=== PATIENT | male | born 1995 | race Two or more races ===

== ENCOUNTER 2018-01-22 01:50 | Emergency (ER) | payer OTHER ==
[2018-01-22] MEDS ORDERED: NS 1,000 ML IV ONE (01:55)
[2018-01-22] MEDS ORDERED: IOPAMIDOL (ISOVUE 370) 100 ML BTL IV ONE (01:58)
--- NOTE | 2018-01-22 01:59 | EDPHY ---
H & P Time Seen by Provider: 01/22/18 01:56 HPI/ROS: HPI CHIEF COMPLAINT: Alcohol intoxication, fall 15 ft, Limited trauma activation HISTORY OF PRESENT ILLNESS: 22-year-old male, LTA, presents to the emergency room after he fell off a deck 15 ft. Landed on the ground. Unknown LO C. Presents emergency room GCS of 14. He is intoxicated with alcohol. Only evidence of trauma on exam is that he has an abrasion to his left scapula, abrasion left forearm. He otherwise intoxicated with alcohol however moves everything appropriately. Patient arrives hemodynamically stable. GCS of 14 due to alcohol toxication some perseverating on exam. Past Medical History: Unknown medical history Past Surgical History: Unknown surgical history Social History: Large amount of alcohol this evening. Family History: Unknown ROS REVIEW OF SYSTEMS: Limited due to patient's alcohol intoxication Exam Constitutional intoxicated with alcohol, triage nursing summary reviewed, vital signs reviewed, awake/alert. Eyes normal conjunctivae and sclera, EOMI, PERRLA. HENT head/neck: Rigid cervical collar. Otherwise head neck atraumatic normal inspection, atraumatic, moist mucus membranes, no epistaxis, neck supple/ no meningismus, no raccoon eyes. Respiratory clear to auscultation bilaterally, normal breath sounds, no respiratory distress, no wheezing. Cardiovascular rate normal, regular rhythm, no murmur, no edema, distal pulses normal. Gastrointestinal soft, non-tender, no rebound, no guarding, normal bowel sounds, no distension, no pulsatile mass. Genitourinary no CVA tenderness. Musculoskeletal no midline vertebral tenderness, full range of motion, no calf swelling, no tenderness of extremities, no meningismus, good pulses, neurovascularly intact. Skin abrasion left posterior scapula, abrasion left forearm. Neurologic intoxicated, smells of alcohol, slurring speech GCS of 14 awake, alert and oriented x 2, AAOx2, moves all 4 extremities equally, motor intact, sensory intact, CN II-XII intact, normal cerebellar, normal vision Psychiatric normal mood/affect. Heme/Lymph/Immune no lymphadenopathy. Differential Diagnosis: Includes but is not limited to in a particular order acute alcohol intoxication, alcohol abuse, fall with multiple injuries, pneumothorax, hemothorax, closed head injury, intracranial bleed Medical Decision Making: Plan for this patient fell 15 ft perseverating with a GCS [address] scan head without contrast CT cervical spine without contrast, chest x-ray, CT chest abdomen pelvis with IV contrast, 2 large-bore IVs, IV fluid bolus, remain in cervical collar, check alcohol level, Re-evaluation: 0245: Serum alcohol level 222. CT scan head without contrast negative for acute traumatic injury CT cervical spine without contrast negative for acute traumatic injury CT scan chest abdomen pelvis with IV contrast negative for acute traumatic injury Cts called to me by Dr. Pelaez. 0453AM: Waiting patient to sober. 0641: Patient ambulatory to the bathroom and clinically sober. Has no complaints. Feels fine. Patient CT trauma scans have been reviewed are negative for acute traumatic injury. Return precautions discussed with the patient understands return emergency room if develops worsening abdominal pain, chest pain, shortness of breath or worsening symptoms. Patient ambulatory well around the ER. NAD. Non toxic appearing. Stable gait, sober. Source: Patient, EMS Exam Limitations: Clinical condition - Medical/Surgical History Hx Asthma: No Hx Chronic Respiratory Disease: No Hx Diabetes: No Hx Cardiac Disease: No Hx Renal Disease: No Hx Cirrhosis: No Hx Alcoholism: No Hx HIV/AIDS: No Hx Splenectomy or Spleen Trauma: No Other PMH: depression, asthma - Social History Smoking Status: Never smoked Constitutional: Initial Vital Signs Temperature (C) 36.6 C 01/22/18 02:01 Heart Rate 122 H 01/22/18 02:01 Respiratory Rate 15 01/22/18 02:01 Blood Pressure 117/73 01/22/18 02:01 O2 Sat (%) 96 01/22/18 02:01 O2 Delivery Mode Room Air Allergies/Adverse Reactions: No Known Allergies Allergy (Verified 01/22/18 02:05) Home Medications: Medication Instructions Recorded NK [No Known Home Meds] 01/22/18 Medical Decision Making - Diagnostics Imaging Results: Imaging Impressions Abdomen CT 01/22/18 01:53 Impression: 1. Small bubble of air within the right side of the anterior abdominal wall at the costal margin, uncertain etiology or significance. Otherwise negative CT examination of the abdomen and pelvis post trauma. The study was performed as an emergency on-call case and discussed by telephone with Dr. Andre Trujillo at both 3:05 AM and 3:30 AM hrs. The final interpretation is concordant with the original communication. Cervical Spine CT 01/22/18 01:53 Impression: Negative noncontrast CT of the cervical spine. The study was performed as an emergency on-call case and discussed by telephone with Dr. Andre Trujillo at 3:05 AM hrs. The final interpretation is concordant with the original communication. Head CT 01/22/18 01:53 Impression: Normal noncontrast CT of the brain. The study was performed as an emergency on-call case and discussed by telephone with Dr. Andre Trujillo at 3:05 AM hrs. The final interpretation is concordant with the original communication. Chest CT 01/22/18 01:55 Impression: 1. Small bubble of air within the right side of the anterior abdominal wall at the costal margin, uncertain etiology or significance. Otherwise negative CT examination of the abdomen and pelvis post trauma. The study was performed as an emergency on-call case and discussed by telephone with Dr. Andre Trujillo at both 3:05 AM and 3:30 AM hrs. The final interpretation is concordant with the original communication. - Data Points Laboratory Results: Laboratory Results 01/22/18 01:59 01/22/18 01:59 Medications Given: Discontinued Medications Sodium Chloride (Ns) 1,000 mls @ 0 mls/hr IV ONCE ONE; Wide Open PRN Reason: Protocol Stop: 01/22/18 01:56 Last Admin: 01/22/18 01:55 Dose: 1,000 mls Point of Care Test Results: Chemistry 01/22/18 02:02 POC Sodium 142 mEq/L mEq/L (135-145) POC Potassium 3.2 mEq/L L mEq/L (3.3-5.0) POC Chloride 103 mEq/L mEq/L (97-110) POC BUN 14 mg/dL mg/dL (7-23) POC Creatinine 1.2 mg/dL mg/dL (0.7-1.3) POC Glucose 127 mg/dL H mg/dL (70-100) ISTAT H&H 01/22/18 02:02 POC Hgb 17.0 gm/dL gm/dL (13.7-17.5) POC Hct 50 % % (40-51) Departure - Departure Disposition: Home, Routine, Self-Care Clinical Impression: Alcohol intoxication Qualifiers: Complication of substance-induced condition: uncomplicated Qualified Code(s): F10.920 - Alcohol use, unspecified with intoxication, uncomplicated Fall Qualifiers: Encounter type: initial encounter Qualified Code(s): W19.XXXA - Unspecified fall, initial encounter Condition: Good Instructions: Alcohol Intoxication (ED), Abuse of Alcohol (ED) Additional Instructions: 1. Return emergency room if any worsening symptoms includes abdominal pain, chest pain, shortness of breath or feeling worse. Referrals: Patient,NotPresent [Unknown] - As per Instructions
[2018-01-22 02:15] LABS: PLATELET COUNT 348 10^3/uL (150-400)
[2018-01-22 02:22] LABS: INR 0.92 (0.83-1.16); PROTIME(PATIENT) 12.6 SEC (12.0-15.0)
[2018-01-22 07:13] VITALS: BP 104/69
== END 2018-01-22 07:00 | disposition home or self-care (01) ==
LOC: EDSEX → EDUNIT#
DX: F10.920 Alcohol use, unspecified with intoxication, uncomplicated (principal); S40.212A Abrasion of left shoulder, initial encounter; S50.812A Abrasion of left forearm, initial encounter; E86.9 Volume depletion, unspecified; R40.2412 Glasgow coma scale score 13-15, at arrival to emergency department; W17.89XA Other fall from one level to another, initial encounter; Y99.8 Other external cause status
CPT/HCPCS: 82435-PO; 82565-PO; 82947-PO; 84132-PO; 84295-PO; 84520-PO; 85014-PO; G0480; Q9967